=== PATIENT | female | born 1950 | race African-American/Black ===

== ENCOUNTER 2020-02-27 22:34 | Emergency (ER) | payer MEDICARE, OTHER ==
[2018-01-03 20:55] VITALS: BP 144/110
[~2020-02-27 22:34] MED LIST: ACET325T21 PO; ACET325T9 PO; AMLO5TAB4 PO; AMOX1TAB61 PO; ATOR40TA59 PO; CALC200T98 PO; CALC215T4 PO; DOXY100C14 PO; FAMO20TA5 PO; FURO-68 PO; GABA-689 PO; HYDR25SU18 RC; INSU100C4 SQ; INSU100I13 SQ; INSU100I32 SQ; INSU100V31 SQ; LEVO137T44 PO; LORA10TA3 PO; LOSA1TAB19 PO; MAG355OR11 PO; MAG355OR12 PO; METO50TA6 PO; MULT-445 PO
--- NOTE | 2020-02-27 23:11 | PHYS DOC ---
Past Medical History Past Medical History: Diabetes-Type II, High Cholesterol, Hypertension, H ypothyroid, Other Additional Past Medical Histor: hemorrhoids Past Surgical History: Tubal ligation Smoking Status: Current Every Day Smoker Alcohol Use: None Drug Use: None General Adult EDM: Chief Complaint: CPR/FULL ARREST HPI: HPI: History obtained from EMS. Patient is a six 9-year-old female with unknown past medical history who presents with chief complaint of cardiac arrest. Per EMS I responded to a call at [facility] for difficulty breathing. Staff reported to EMS that the patient appeared to be having agonal respirations. EMS states upon arrival the patient was pulseless. Her initial rhythm was PEA. She did receive 6 mg of epinephrine total prior to arrival. They did state that they identified 1 ventricular fibrillation rhythm which they shocked. They state the remainder of rhythms post defibrillation was asystole. Endotracheal tube was placed in the field by EMS. No further history can be obtained at this time. Review of Systems: Review of Systems: Review of systems unobtainable secondary to cardiac arrest Heart Score: Risk Factors: Risk Factors: DM, Current or recent (<one month) smoker, HTN, HLP, family history of CAD, obesity. Risk Scores: Score 0 - 3: 2.5% MACE over next 6 weeks - Discharge Home Score 4 - 6: 20.3% MACE over next 6 weeks - Admit for Clinical Observation Score 7 - 10: 72.7% MACE over next 6 weeks - Early Invasive Strategies Allergies: Allergies: Allergies Coded Allergies Type Severity Reaction Last Updated Verified Sulfa (Sulfonamide Antibiotics) Allergy Intermediate itching 02/02/18 Yes metronidazole Allergy Intermediate 02/02/18 Yes Physical Exam: PE: Constitutional: Unresponsive HENT: Pupils 3 mm and fixed bilaterally. Eyes: PERRLA, EOMI, conjunctiva normal, no discharge. [] Cardiovascular: Initial rhythm PEA. Pulseless. Lungs & Thorax: Endotracheal tube is in place. Abdomen: No distention appreciated Skin: Warm, dry, no erythema, no rash. [] Neurologic: GCS 3 T EKG: EKG: [] Radiology/Procedures: Radiology/Procedures: [] Course & Med Decision Making: Course & Med Decision Making Pertinent Labs and Imaging studies reviewed. (See chart for details) [] Patient is a 69-year-old female who arrives via EMS for cardiac arrest. She reportedly had a witnessed cardiac arrest at her living facility. Initial rhythm upon arrival was PEA for EMS. She did receive a total 6 mg of epinephrine in route. 1 rhythm of ventricular fibrillation was identified and she was defibrillated. Remainder of rhythms post defibrillation have been asystole. Upon arrival patient remains in PEA. She was given a total of 2 A of bicarbonate, 3 mg of epinephrine, 1 g of calcium chloride. Endotracheal tube placement was confirmed with glide scope. Multiple rounds of ACLS were given. Fortunately patient's rhythm never deviated from PEA. No shocks were administered. After a total of 60 minutes of pulseless downtime decision was made to terminate resuscitation. Time of 9. Dragon Disclaimer: Dragon Disclaimer: This electronic medical record was generated, in whole or in part, using a voice recognition dictation system. Departure Departure Impression: Primary Impression: Cardiac arrest Disposition: 20 Condition: Referrals: CARLEY DE LEON (PCP) ISH MCFARLANE DO Feb 27, 2020 23:11
== END 2020-02-28 04:35 ==
LOC: ER 22:34
DX: I46.9 Cardiac arrest, cause unspecified (principal); E11.9 Type 2 diabetes mellitus without complications; E78.00 Pure hypercholesterolemia, unspecified; I10 Essential (primary) hypertension; E03.9 Hypothyroidism, unspecified; F17.200 Nicotine dependence, unspecified, uncomplicated; Z98.51 Tubal ligation status; Z88.3 Allergy status to other anti-infective agents; Z88.2 Allergy status to sulfonamides
CPT/HCPCS: 92950; 99285